=== PATIENT | female | born 1975 | race Two or more races ===

== ENCOUNTER 2018-12-23 12:47 | Emergency (ER) | payer MEDICAID ==
[~2018-12-23] VITALS: Ht 149.9 cm; Wt 66.7 kg
[2018-12-23] MEDS ORDERED: CALCIUM600 M1 PO (12:55)
[2018-12-23] MEDS ORDERED: MAGNESIUM400 M2 PO (12:55)
[2018-12-23 13:02] VITALS: BP 140/65
--- NOTE | 2018-12-23 13:02 | NUR ---
ED Nurse Note: Ambulated in to ER due to SOB since this morning at 9am. Pt reports SOB lasted about 7min. Hx DVT on left leg last year. Took xarelto for 6 months and no longer taking any blood thinner at this time. No labor breathing noted. Denies CP or SOB at this time.
[2018-12-23] MEDS ORDERED: Isovue-370 150ml vial INJ PRN (13:15)
--- NOTE | 2018-12-23 13:17 | Emergency Room Report ---
History of Present Illness General Chief Complaint: Dyspnea/Respdistress Source: Patient (Benjie Virgen DO) Present Illness HPI Patient presents with complaints of an episode of dyspnea and shortness of breath this morning Patient has a computed past medical history including significant DVT, thrombectomy, previous uterine fibroid with hysterectomy secondary to obstructive pathology of the ureters Patient had these procedures done last year in [place] also has a filter in place Patient's sister reports that she lives in [place] and by the time she arrived here she brought the patient to the emergency room Currently the patient feels otherwise well does not complain of any active pleurisy or chest pain Patient was previously on xarelto as well however not for the past several months Denies any other recent travel denies any cough (Benjie Virgen DO) Allergies: Coded Allergies: No Known Allergies (Unverified , 12/23/18) Patient History Past Medical History: see triage record Pertinent Family History: none Reviewed Nursing Documentation: PMH: Agreed; PSxH: Agreed (Benjie Virgen DO) Review of Systems All Other Systems: negative except mentioned in HPI (Benjie Virgen DO) Physical Exam Vital Signs Date Time Temp Pulse Resp B/P (MAP) Pulse Ox O2 Delivery O2 Flow Rate FiO2 12/23/18 12:50 98.8 111 23 135/70 95 Room Air Sp02 EP Interpretation: reviewed, normal General Appearance: well appearing, no apparent distress Head: normocephalic, atraumatic Eyes: bilateral eye PERRL, bilateral eye EOMI ENT: hearing grossly normal, normal pharynx, TMs + canals normal, uvula midline Neck: full range of motion, supple, no meningismus, no bony tend Respiratory: lungs clear, normal breath sounds, no rhonchi, no respiratory distress, no retraction, no accessory muscle use Cardiovascular #1: normal peripheral pulses, regular rate, rhythm, no edema, no gallop, no JVD, no murmur Gastrointestinal: normal bowel sounds, non tender, soft, no mass, no organomegaly, non-distended, no guarding, no hernia, no pulsatile mass, no rebound, other - Lower abdominal scar from previous surgery Genitourinary: no CVA tenderness Musculoskeletal: normal inspection Neurologic: oriented x3, responsive, 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, motor strength/ tone normal, sensory intact Psychiatric: mood/affect normal Skin: normal color, no rash, warm/dry, palpation normal Lymphatic: normal inspection, no adenopathy (Benjie Virgen DO) Medical Decision Making Diagnostic Impression: Primary Impression: Palpitations ER Course Patient is a fairly complex patient with multiple differential to consideration including but not limited to cardiac cardiopulmonary and vascular emergencies Given the patient's complex medical history Given the initial presentation with mild tachycardia and the initial complaints of shortness of breath Patient requires evaluation for pulmonary embolism CT imaging is ordered (Benjie Virgen DO) ER Course Please see above note. She describes more palpitations and rapid heartbeat this morning to me. She also complains of dysuria. The patient examined by me. She has no distress at this time. Urinalysis is added to the orders. Labs and CTA exclude pulmonary embolus. She has sinus rhythm on the monitor at this time. Await urinalysis UA clear. Patient stable for outpatient observation and treatment. Laboratory Tests Test 12/23/18 13:20 12/23/18 14:59 White Blood Count 7.2 K/UL (4.8-10.8) Red Blood Count 4.92 M/UL (4.20-5.40) Hemoglobin 14.8 G/DL (12.0-16.0) Hematocrit 43.9 % (37.0-47.0) Mean Corpuscular Volume 89 FL (80-99) Mean Corpuscular Hemoglobin 30.0 PG (27.0-31.0) Mean Corpuscular Hemoglobin Concent 33.6 G/DL (32.0-36.0) Red Cell Distribution Width 12.3 % (11.6-14.8) Platelet Count 319 K/UL (150-450) Mean Platelet Volume 7.6 FL (6.5-10.1) Neutrophils (%) (Auto) 73.0 % (45.0-75.0) Lymphocytes (%) (Auto) 19.1 % (20.0-45.0) L Monocytes (%) (Auto) 6.1 % (1.0-10.0) Eosinophils (%) (Auto) 0.3 % (0.0-3.0) Basophils (%) (Auto) 1.5 % (0.0-2.0) Sodium Level 139 MMOL/L (136-145) Potassium Level 3.6 MMOL/L (3.5-5.1) Chloride Level 103 MMOL/L (98-107) Carbon Dioxide Level 26 MMOL/L (21-32) Anion Gap 10 mmol/L (5-15) Blood Urea Nitrogen 11 mg/dL (7-18) Creatinine 1.0 MG/DL (0.55-1.30) Estimate Glomerular Filtration Rate > 60 mL/min (>60) Glucose Level 105 MG/DL (74-106) Calcium Level 10.0 MG/DL (8.5-10.1) Total Bilirubin 0.8 MG/DL (0.2-1.0) Aspartate Amino Transferase (AST) 23 U/L (15-37) Alanine Aminotransferase (ALT) 39 U/L (12-78) Alkaline Phosphatase 33 U/L (46-116) L Total Creatine Kinase 89 U/L (26-308) Creatine Kinase MB 0.8 NG/ML (0.0-3.6) Creatine Kinase MB Relative Index 0.8 Troponin I 0.017 ng/mL (0.000-0.056) Pro-B-Type Natriuretic Peptide 195 pg/mL (0-125) H Total Protein 7.8 G/DL (6.4-8.2) Albumin 4.1 G/DL (3.4-5.0) Globulin 3.7 g/dL Albumin/Globulin Ratio 1.1 (1.0-2.7) Urine Color Yellow Urine Appearance Clear Urine pH 6 (4.5-8.0) Urine Specific [place] 1.005 (1.005-1.035) Urine Protein Negative (NEGATIVE) Urine Glucose (UA) Negative (NEGATIVE) Urine Ketones Negative (NEGATIVE) Urine Blood Negative (NEGATIVE) Urine Nitrite Negative (NEGATIVE) Urine Bilirubin Negative (NEGATIVE) Urine Urobilinogen Normal MG/DL (0.0-1.0) Urine Leukocyte Esterase Negative (NEGATIVE) (Rustam Houston MD) Rhythm Strip Diag. Results EP Interpretation: yes Rhythm: NSR, no PVC's, no ectopy (Rustam Houston MD) Chest X-Ray Diagnostic Results Chest X-Ray Diagnostic Results : Chest X-Ray Ordered: Yes # of Views/Limited/Complete: 1 View Indication: Other EP Interpretation: Yes Interpretation: no consolidation, no effusion, no pneumothorax Impression: No acute disease Electronically Signed by: Electronically signed by Rustam Houston MD (Rustam Houston MD) CT/MRI/US Diagnostic Results CT/MRI/US Diagnostic Results : Imaging Test Ordered: CTA chest Impression no pulmonary embolus (Rustam Houston MD) Last Vital Signs Date Time Temp Pulse Resp B/P (MAP) Pulse Ox O2 Delivery O2 Flow Rate FiO2 12/23/18 13:02 98.8 111 14 140/65 98 Room Air (Benjie Virgen DO) Status: improved (Rustam Houston MD) Disposition: HOME, SELF-CARE Condition: Improved Benjie Virgen DO Dec 23, 2018 13:17 Rustam Houston MD Dec 23, 2018 14:57
[2018-12-23 13:32] LABS: BASOPHILS % (AUTO) 1.5 % (0.0-2.0); EOSINOPHILS % (AUTO) 0.3 % (0.0-3.0); HEMATOCRIT 43.9 % (37.0-47.0); HEMOGLOBIN 14.8 G/DL (12.0-16.0); LYMPHOCYTES % (AUTO) 19.1 % (20.0-45.0); MEAN CORPUSCULAR VOLUME 89 FL (80-99); MONOCYTES % (AUTO) 6.1 % (1.0-10.0); PLATELET COUNT 319 K/UL (150-450); RED BLOOD COUNT 4.92 M/UL (4.20-5.40); RED CELL DISTRIBUTION WIDTH 12.3 % (11.6-14.8); WHITE BLOOD COUNT 7.2 K/UL (4.8-10.8)
[2018-12-23 13:42] LABS: ANION GAP 10 mmol/L (5-15); BLOOD UREA NITROGEN 11 mg/dL (7-18); CARBON DIOXIDE 26 MMOL/L (21-32); CHLORIDE 103 MMOL/L (98-107); POTASSIUM 3.6 MMOL/L (3.5-5.1); SODIUM 139 MMOL/L (136-145)
[2018-12-23 13:55] LABS: ALANINE AMINOTRANSFERASE 39 U/L (12-78); ALBUMIN 4.1 G/DL (3.4-5.0); ALBUMIN/GLOBULIN RATIO 1.1 (1.0-2.7); ALKALINE PHOSPHATASE 33 U/L (46-116); ASPARTATE AMINO TRANSFERASE 23 U/L (15-37); BILIRUBIN,TOTAL 0.8 MG/DL (0.2-1.0); CKMB 0.8 NG/ML (0.0-3.6); CREATINE KINASE 89 U/L (26-308)
--- NOTE | 2018-12-23 14:00 | NUR ---
ED Nurse Note: Pt sent down to CTA via gurney. VSS. No s/s of distress.
--- NOTE | 2018-12-23 14:13 | NUR ---
ED Nurse Note: Pt is back from CTA. VSS. Remains stable.
[2018-12-23 14:20] VITALS: BP 112/58
--- NOTE | 2018-12-23 15:01 | NUR ---
ED Nurse Note: URINE SENT DOWN TO THE LAB.
[2018-12-23 15:17] LABS: APPEARANCE,URINE CLEAR; BILIRUBIN, URINE NEGATIVE (NEGATIVE); GLUCOSE, URINE (UA) NEGATIVE (NEGATIVE); KETONES,URINE NEGATIVE (NEGATIVE); LEUKOCYTE ESTERASE ,URINE NEGATIVE (NEGATIVE); NITRITE,URINE NEGATIVE (NEGATIVE); PH,URINE 6 (4.5-8.0); PROTEIN,URINE NEGATIVE (NEGATIVE); UROBILINOGEN,URINE NORMAL MG/DL (0.0-1.0)
[2018-12-23 15:19] LABS: COLOR,URINE YELLOW
[2018-12-23 15:46] VITALS: BP 108/63
--- NOTE | 2018-12-23 15:49 | NUR ---
ED Nurse Note: Pt cleared by health care Provider for discharge. DC instructions/prescription was given and explained to pt and verbalized understanding of teachings. All medical deviecs such as ID band and IV removed. Pt is AAO x4, ambulatory and left with all personal belongings.
--- NOTE | 2018-12-24 08:23 | Diagnostic Imaging Report ---
ndication: Shortness of breath Technique: IV administration nonionic contrast. Spiral acquisitions obtained from the lung bases to the lung apices. Multiplanar and 3-D reconstructions were generated. Total dose length product 688.08 mGycm. CTDIvol(s) 23.4 mGy. Dose reduction achieved using automated exposure control Comparison: none Findings: No intraluminal filling defects or other findings to suggest acute pulmonary embolus demonstrated. Normal branching anatomy of the great neck vessels. No evidence of thoracic aortic aneurysm or dissection. Normal caliber pulmonary arteries. No evidence of right ventricular dilatation. Visualized upper abdominal visceral vessels are unremarkable. The lungs are clear. No infiltrates, effusions, congestion, nodules, or masses demonstrated. The included thyroid is unremarkable. The heart size is normal. No pericardial effusion. No mediastinal or hilar mass or adenopathy. No axillary or chest wall mass or adenopathy. Included upper abdominal anatomy is remarkable for the presence of a 1.5 cm cyst in segment 2 of the liver. Other subcentimeter low-attenuation hepatic lesions are also demonstrated which are too small to characterize. Impression: Essentially unremarkable exam. Negative for evidence of acute pulmonary embolus or other acute thoracic pathology Incidental finding left lobe hepatic simple cyst This agrees with the preliminary interpretation provided overnight by [facility] teleradiology service. The CT scanner at [facility] is accredited by the [employer] and the scans are performed using protocols designed to limit radiation exposure to as low as reasonably achievable to attain images of sufficient resolution adequate for diagnostic evaluation.
--- NOTE | 2018-12-24 10:55 | Diagnostic Imaging Report ---
Indication: Chest pain Technique: One view of the chest Comparison: none Findings: Lungs and pleural spaces are clear. Heart size is normal Impression: No acute process
--- NOTE | 2018-12-25 21:30 | Cardiology Report ---
APPROVED REPORT EKG Measurement Heart [id number] Sin[address] N[address] ST abnormality Abnormal ECG
== END 2018-12-23 15:49 | disposition home or self-care (01) ==
LOC: EMR 13:23
DX: R00.2 Palpitations (principal); Z86.718 Personal history of other venous thrombosis and embolism; R30.0 Dysuria
CPT/HCPCS: 36415; 71045; 71275; 80053; 81003; 82550; 82553; 83880; 84484; 85025; 93005; 99284; Q9967